=== PATIENT | male | born 1950 | race Caucasian/White ===

== ENCOUNTER 2018-04-05 13:30 | Day surgery (SDC) | payer MEDICARE, OTHER, SELFPAY ==
[2018-04-04 10:24] VITALS: BMI 26.4
[2018-04-05] VITALS (12 sets, daily range): BP systolic 114–141; BP diastolic 77–95; PULSE 77–92; RESP 8–16; TEMP 36–37.4; O2SAT 94–99; BMI 26.4
--- NOTE | 2018-04-05 | PATH_ITS ---
[facility] Accession Number: [id number] . 01 Material submitted: . L4 BONE BIOPSY . 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 MRV/04/10/2018 . 02 Comment: The histologic findings are consistent with a plasma cell neoplasm. The differential diagnosis includes a solitary plasmacytoma versus multiple myeloma or other plasma cell dyscrasia. Please correlate with serum protein electrophoresis and other clinical and imaging findings. . The finding of a plasma cell neoplasm was reported to Dr. Knowles's nurse, Agueda, by Dr. Xander Garcia on 04/10/18 at 2 PM. As part of routine quality assurance supervisor trim, Dr. East has reviewed the H/E slide from this case and agrees with the diagnosis of a plasma cell neoplasm. . 02 Electronically signed: . Xander Garcia MD, PhD, Pathologist NPI- [id number] . 01 Gross description: . Received in formalin, labeled L4 bone bx, are multiple fragments of red-brown and moseley-white soft and gritty tissue (1.2 x 0.8 x 0.2 cm in aggregate). Decalcified and entirely submitted in cassette A1. ([id number]) /[facility] . 02 Microscopic: . Sections are of remodeling bone and blood clot with focal collections of atypical appearing plasmacytoid cells. To further characterize the cells of interest, a limited panel of immunohistochemical stains is performed, each with an appropriately positive control. The cells of interest are strongly and diffusely positive for CD138 and MUM1 immunoreactivity, consistent with a plasma cell population. The plasma cells are diffusely positive for kappa light chain and are negative for lambda light chain by immunohistochemistry, consistent with kappa light chain restriction. Overall, the findings are consistent with a plasma cell neoplasm. . * This test was developed and its performance characteristics determined by [facility]. It has not been cleared or approved by the U.S. Food and Drug Administration. The FDA has determined that such clearance or approval is not necessary. This test is used for clinical purposes. It should not be regarded as investigational or for research. . 02 Pathologist provided ICD-10: M84.40XS . 02 CPT . 690550, X98930, D92521 Performed at: 01 [facility] [address] [id number] MD Douglas Medel MD Phone: [phone] Performed at: 02 [facility] [id number] [place] [id number] MD Chetan East MD Phone: [phone]
--- NOTE | 2018-04-05 | DI.RAD.S_ITS ---
PROCEDURE: XR LUMBAR SPINE 2-3V INDICATIONS: L4-KYPHOPLASTY TECHNIQUE: 6 views of the lumbar spine were acquired. COMPARISON: SNO Outside Film, RG, SPINE LUMB 2 OR 3VW, 03/07/2018, 14:17. FINDINGS: 6 spot fluoroscopic intraoperative images demonstrating L4 kyphoplasty. Dictated by: Shayne Morales M.D. on 04/05/2018 at 17:00 Approved by: Shayne Morales M.D. on 04/05/2018 at 17:01
[2018-04-05] MEDS: LACTATED RINGERS 1,000 ML 42 ML IV ×2 (14:25→16:42)
--- NOTE | 2018-04-05 14:32 | PM.PREOP ---
Pre-operative Note Interval Note Pre-op Check: Yes History & Physical Reviewed by Physician and Yes Exam Performed Changes: No
[2018-04-05] MEDS: CEFAZOLIN 2 GM/100 ML FROZ.PIGGY IV (14:52)
--- NOTE | 2018-04-05 15:09 | SUR.OPER ---
Prone on flat padded spine table, head in foam head cradle per anesthesia, bilateral arms on gel padded armboards and secured. Yellow gel rolls bilateral torso per surgeon, pillows X2 under lower legs. Legs secured with tape strapes X2 over blanket. Toes free, gel pad between heels.
[2018-04-05] MEDS: BUPIVACAINE 0.25% W/ EPI VIAL 50 ML INJ (15:19)
[2018-04-05] MEDS: fentaNYL 100 MCG/2 ML INJ 50 MCG IV ×2 (15:43→15:49)
--- NOTE | 2018-04-05 15:57 | PM.OP.1 ---
Operative Date/Time/Diagnoses Date of procedure: 04/05/18 Time of procedure: 15:57 Pre-op diagnosis: L4 compression fracture Back pain Post-op diagnosis: same Procedure & Clinicians Procedure: L4 kyphoplasty Same procedure as scheduled: Yes Indications: [age] year old male with intractable pain from compression fracture of L4. They had failed conservative management and requested operative intervention. Risks and benefits of surgery were discussed and appropriate consents were obtained. Surgeon: Lan Knowles Click Yes if Unassisted: Yes Anesthesia Type: General Operative Notes Findings: None Closure Type: primary Specimen(s): other (L4 biopsy) Estimated Blood Loss (mL): 5 Procedure in detail: The patient was brought to the operating room and intubated on the table. They were then rolled over to the well-padded prone position. Time-out was performed. We confirmed positioning with two fluoroscopy views. The back was prepped and draped in the standard sterile fashion. Preoperative antibiotics were given. Using fluoroscopic guidance, the planned incision site was infiltrated with Marcaine with epinephrine and injected down to the entry site of the left pedicle of L4. A small stab incision was made and we advanced a Jamshiedi needle down the left pedicle into the vertebral body. There is no resistance once we were inside the vertebral body. We tried to do a bone biopsy but only were able to harvest bloody fluid. Because of his ongoing anemia and questionable pathologic fracture, I felt it was necessary to get more biopsy. I then made a separate stab incision on the right side and went down the right pedicle of L4. We did answer trocar into the vertebral body under fluoroscopic guidance as well. A bone biopsy was harvested from this successfully and sent to pathology. We then passed the DFine osteotome and opened it up to create a void inside the vertebral body from both sides. We then began injecting the cement. This was done with frequent fluoroscopy imaging. There was no extravasation. Once we had good fill of the L4 vertebral body the injection was stopped and the trocars were removed. Final x-rays were taken. The wound was cleaned. Steri-Strips and sterile dressing were placed. Patient was rolled over, extubated, and brought to recovery without complications. Complications: none Condition: stable Disposition: PACU Plan for aftercare: Discharge home as an outpatient. He may restart his Coumadin tonight. Continue with Lovenox bridge tomorrow.
[2018-04-05] MEDS: HYDROMORPHONE 2 MG INJ 0.5 MG IV ×4 (16:00→16:51)
--- NOTE | 2018-04-05 16:19 | SUR.PHASEI ---
Dr. Allen notified pt c/o back spasms, order pending for vistaril.
[2018-04-05] MEDS: hydrOXYzine 50 MG/ML INJ IM (16:21)
[2018-04-05] MEDS: LORazepam 2 MG/ML SYRINGE 0.25 MG IV (16:40)
[2018-04-05] MEDS: OXYCODONE/ACETAMINOPHEN 5/325 TABLET 1 TAB PO ×2 (17:01→18:45)
--- NOTE | 2018-04-05 17:59 | SUR.PHASEII ---
patient continues to c/o right shoulder pain. unresolved with heat and pain medication. 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 able to raise arm from bed surface. denies increased pain with movement. states pain is constant. Attempted to get patient up from bed. unable to turn onto right side in preperation for sitting up. states back hurts in same location as prior to surgery. became resistant and declined to move/get up at this time.
--- NOTE | 2018-04-05 19:43 | SUR.PHASEII ---
Pt. delayed on being D/C'd due to the fear of the what if's once he ((pt.) got home. Pt's spouse has set up to have neighbors help him(the pt) get into the house and in his ((pt.) recliner. Percocet given while in phase II, pt. did state that he (pt) is noticing a good effect. Pt's dghtr also will meet the pt and spouse at home and will plan on assisting any way needed. Encouraged pt. to sit up on EOB, which pt.was slightly resistant but did proceed doing so. Pt. used own walking stick to stand, with some difficulty but did. Able to ambulate to BR with walking stick and this author. Spouse assisting while in BR with dressing. Pt. out of BR able to sit in w/c with pillow on seat and behind back. Pt. d/c home.
--- NOTE | 2018-04-05 19:53 | SUR.PHASEI ---
Addendum: [id number] Dr. Allen notified patient c/o rt shoulder pain, no new orders.
== END 2018-04-05 19:58 | disposition home or self-care (01) ==
PROVIDERS: PCP Nurse Practitioner; Visit Provider Orthopaedic Surgery
PROC: (CPT 22514; principal; 2018-04-05 14:45)
DX: S32.040A Wedge compression fracture of fourth lumbar vertebra, initial encounter for closed fracture (principal); M48.062 Spinal stenosis, lumbar region with neurogenic claudication; M54.9 Dorsalgia, unspecified; M41.9 Scoliosis, unspecified; M79.661 Pain in right lower leg; Z86.718 Personal history of other venous thrombosis and embolism; Z79.01 Long term (current) use of anticoagulants; D64.9 Anemia, unspecified; D68.51 Activated protein C resistance
CPT/HCPCS: 22514; 62267; 72100; 76001; 88305; 88341; 88342; C1776; J0690; J1170; J2060; J3010; J3410